=== PATIENT | male | born 1995 | race Caucasian/White ===

== ENCOUNTER 2017-01-11 13:36 | Emergency (ER) | payer OTHER | END 2017-01-11 15:10 | disposition home or self-care (01) | LOC: ER1 13:36 | DX: S50.01XA Contusion of right elbow, initial encounter (principal); W50.0XXA Accidental hit or strike by another person, initial encounter; Y92.009 Unspecified place in unspecified non-institutional (private) residence as the place of occurrence of the external cause; F17.210 Nicotine dependence, cigarettes, uncomplicated | CPT/HCPCS: 73080; 73090; 99283 ==

== ENCOUNTER 2021-03-24 16:27 | Emergency (ER) | payer OTHER ==
[~2021-03-24 16:27] MED LIST: FLOMAX0.4 MG PO; IBUPROFEN600 MG PO; NORCO 7.5-3251 EACH PO; TORADOL 10 MG T10 MG PO; ZOFRAN ODT 4 MG4 MG SL; ZOFRAN4 MG PO
== END 2021-03-24 18:00 | disposition left against medical advice (07) ==
LOC: ER1 16:27
DX: Z53.21 Procedure and treatment not carried out due to patient leaving prior to being seen by health care provider (principal)